=== PATIENT | female | born 1990 | race Caucasian/White ===

== ENCOUNTER 2019-12-05 12:33 | Emergency (ER) | payer MEDICAID ==
[~2019-12-05] VITALS: Ht 152.4 cm; Wt 93.9 kg
[2019-12-05 12:44] VITALS: BP 129/85
[2019-12-05] MEDS ORDERED: ALUMINUM HYD/MAG/SIMETHICONE 30 ML UDC PO ONE (13:00)
[2019-12-05] MEDS ORDERED: LIDOCAINE VISCOUS 2% 20 ML UDC PO ONE (13:00)
[2019-12-05] MEDS ORDERED: DICYCLOMINE HCL LIQUID 10 MG/5 ML UDC PO ONE (13:00)
[2019-12-05 13:54] VITALS: BP 124/84
== END 2019-12-05 13:55 | disposition home or self-care (01) ==
LOC: MED 12:33
DX: K29.70 Gastritis, unspecified, without bleeding (principal); K21.9 Gastro-esophageal reflux disease without esophagitis; Z98.890 Other specified postprocedural states
CPT/HCPCS: 99284